=== PATIENT | female | born 1985 ===

== ENCOUNTER 2018-10-25 12:07 | Emergency (ER) | payer SELFPAY ==
--- NOTE | 2018-10-25 14:32 | ED PDOC ---
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 Patient denies fever or taking medications at home. PMD: in [place] Past Medical History Reviewed: Historical Data, Nursing Documentation, Vital Signs Vital Signs: Last Vital Signs Temp 97.6 F 10/25/18 12:13 Pulse 66 10/25/18 12:13 Resp 22 10/25/18 14:02 BP 101/63 10/25/18 12:13 Pulse Ox 99 10/25/18 14:02 - Medical History PMH: No Chronic Diseases Denies: Chronic Kidney Disease - Surgical History Surgical History: No Surg Hx - Family History Family History: States: Unknown Family Hx - Social History Current smoker - smoking cessation education provided: No Ex-Smoker (has not smoked in the last 12 months): No Alcohol: None Drugs: Denies - Home Medications Home Medications: Ambulatory Orders Medication Instructions Recorded RX: Albuterol HFA [Ventolin HFA 90 1 - 2 puff IH Q4H PRN #1 bottle 10/25/18 mcg/actuation (8 g)] - Allergies Allergies/Adverse Reactions: Allergies Allergy/AdvReac Type Severity Reaction Status Date / Time No Known Allergies Allergy Verified 10/25/18 12:18 Review of Systems ROS Statement: Except As Marked, All Systems Reviewed And Found Negative Constitutional: Negative for: Fever ENT: Positive for: Nose Congestion Respiratory: Positive for: Cough Physical Exam - Reviewed Nursing Documentation Reviewed: Yes Vital Signs Reviewed: Yes - Physical Exam Appears: Positive for: No Acute Distress Head Exam: Positive for: ATRAUMATIC, NORMOCEPHALIC Skin: Positive for: Normal Color, Warm, Dry Eye Exam: Positive for: EOMI, Normal appearance, PERRL ENT: Positive for: Normal ENT Inspection Neck: Positive for: Normal Cardiovascular/Chest: Positive for: Regular Rate, Rhythm Respiratory: Positive for: Normal Breath Sounds, Other (patient coughing throughout exam) Gastrointestinal/Abdominal: Positive for: Other (gravid uterus) Extremity: Positive for: Normal ROM (upper and lower) Neurologic/Psych: Positive for: Alert, Oriented (x3) - ECG O2 Sat by Pulse Oximetry: 99 (RA) Pulse Ox Interpretation: Normal Medical Decision Making Medical Decision Making: Time: 1434 Plan: sob, cough, --Albuterol 2.5 mg INH --Peak flow pre/post treatment pt with normal vitals, clear lungs and benign blood work. Time: 172 --Patient feels completely better, coughing resolved, states albuterol helped her alot, patient to be discharged home, instructed on outpt follow up with primary dr. Scribe Attestation: Documented by Laury Warner, acting as a scribe for Jan Sinclair MD. Provider Scribe Attestation: All medical record entries made by the Scribe were at my direction and person ally dictated by me. I have reviewed the chart and agree that the record accurately reflects my personal performance of the history, physical exam, medical decision making, and the department course for this patient. I have also personally directed, reviewed, and agree with the discharge instructions and disposition. Disposition - Clinical Impression Clinical Impression: Cough - Patient ED Disposition Is Patient to be Admitted: No Counseled Patient/Family Regarding: Studies Performed, Diagnosis, Need For Followup - Disposition Disposition: Routine/Home Disposition Time: 17:21 Condition: IMPROVED Additional Instructions: follow up with your primary doctor in 1-2 days return to the ED with any worsening or concerning symptoms Prescriptions: RX: Albuterol HFA [Ventolin HFA 90 mcg/actuation (8 g)] 1 - 2 puff IH Q4H PRN #1 bottle PRN Reason: Wheezing Instructions: Cough, Adult (DC) Forms: [employer] (Latvian), [employer] (Belizean) Print Language: KOREAN
[2018-10-25] MEDS ORDERED: Albuterol 0.083% Inhal Sol (2.5 mg/3 mL) UD INH ONE ×2 (14:45→15:34)
[2018-10-25] MEDS ORDERED: Albuterol 0.083% Inhal Sol (2.5 mg/3 mL) UD ONE ×2 (15:18→15:41)
[2018-10-25 18:12] VITALS: BP 101/73; PULSE 80; RESP 20; TEMP 97.8
[2018-10-26 15:56] VITALS: O2SAT 99
== END 2018-10-25 18:09 | disposition home or self-care (01) ==
LOC: H.ER 12:07
DX: R05 Cough (principal); O26.893 Other specified pregnancy related conditions, third trimester; Z3A.34 34 weeks gestation of pregnancy; Z87.891 Personal history of nicotine dependence

== ENCOUNTER 2018-11-17 21:47 | Emergency (ER) | payer SELFPAY ==
[2018-11-17 21:56] VITALS: O2SAT 100
[2018-11-17] MEDS ORDERED: Albuterol 0.083% Inhal Sol (2.5 mg/3 mL) UD INH STA (22:54)
--- NOTE | 2018-11-17 22:59 | ED PDOC ---
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 is 28 weeks and states for the past 3 weeks she's had chest tightne ss and wheezing with a cough productive of yellow sputum. States she was initially seen in this ED at the onset of symptoms and given an albuterol neb with good improvement of symptoms. Pt. states she was prescribed an albuterol inhaler but did not get prescription filled as it was too expensive. She followed up with her PMD 4 days ago and she was prescribed a Z-pack which has not provided any relief. Reports a hx of asthma as a child. Also states she's developed nasal congestion. Denies fever, chills, hemoptysis, hx of DVT or PE, leg pain, vaginal bleeding, abdominal pain, pelvic pain. Past Medical History Reviewed: Historical Data, Nursing Documentation, Vital Signs Vital Signs: Last Vital Signs Temp 98.1 F 11/17/18 21:56 Pulse 109 H 11/17/18 21:56 Resp 18 11/17/18 22:16 BP 99/74 L 11/17/18 21:56 Pulse Ox 100 11/17/18 21:56 - Medical History PMH: Denies: Chronic Kidney Disease - Surgical History Surgical History: No Surg Hx - Family History Family History: States: No Known Family Hx - Home Medications Home Medications: Ambulatory Orders Medication Instructions Recorded Albuterol HFA [Ventolin HFA 90 1 - 2 puff IH Q4H PRN #1 bottle 10/25/18 mcg/actuation (8 g)] Albuterol Sulfate [Proair Hfa] 2 puff IH Q4 PRN #1 inh 11/18/18 - Allergies Allergies/Adverse Reactions: Allergies Allergy/AdvReac Type Severity Reaction Status Date / Time No Known Allergies Allergy Verified 11/17/18 21:56 Wells Criteria for PE - Wells Criteria for Pulmonary Embolism Clinical Signs and Symptoms of DVT: No P.E is #1 Diagnosis, or Equally Likely: No Heart Rate >100: No Immobilization at least 3 days;Surgery previous 4 weeks: No Previous, objectively diagnosed PE or DVT: No Hemoptysis: No Malignancy w/treatment within 6 months, or palliative: No Total Score: 0 Review of Systems ROS Statement: Except As Marked, All Systems Reviewed And Found Negative ENT: Positive for: Nose Congestion Respiratory: Positive for: Cough, Wheezing Physical Exam - Physical Exam Appears: Positive for: Well, Non-toxic, No Acute Distress (speaking in full complete sentences) Skin: Positive for: Normal Color, Warm. Negative for: Rash Eye Exam: Positive for: Normal appearance ENT: Positive for: TM Is/Are (non-erythematous, non-bulging b/l), Nasal Congestion. Negative for: Pharyngeal Erythema, Tonsillar Exudate, Tonsillar Swelling Neck: Positive for: Normal, Painless ROM Cardiovascular/Chest: Positive for: Regular Rate, Rhythm. Negative for: Tachycardia Respiratory: Positive for: Wheezing (b/l expiratory wheezing). Negative for: Accessory Muscle Use, Crackles, Rales, Respiratory Distress Gastrointestinal/Abdominal: Positive for: Soft, Other (gravid). Negative for: Tenderness Back: Positive for: Normal Inspection. Negative for: L CVA Tenderness, R CVA Tenderness Neurological/Psych: Positive for: Awake, Alert, Oriented (x3) - ECG ECG: Positive for: Interpreted By Me ECG Rhythm: Positive for: Sinus Rhythm. Negative for: ST/T Changes Rate: 98 O2 Sat by Pulse Oximetry: 100 - Radiology X-Ray: Interpreted by Me (CXR) X-Ray Interpretation: No Acute Disease - Progress ED Course And Treament: Albuterol neb x 3, CXR ordered. Case d/w Dr. Clayton who agrees with plan and care. 0000 Slovenian [id number] On re-evaluation, pt. reports complete relief of dyspnea. Lungs clear b/l. Advised to continue Z-pack as prescribed and is to f/u with PMD for further evaluation but is to return to ED immediately if symptoms worsen. On cardiac nurse: SR at [address]-T wave changes. Disposition - Clinical Impression Clinical Impression: Bronchospasm, acute - Patient ED Disposition Is Patient to be Admitted: No - Disposition Referrals: [facility] [Outside] Disposition: Routine/Home Disposition Time: 00:00 Condition: IMPROVED Additional Instructions: NANCY MCMAHAN, thank you for letting us take care of you today. Your provider was Brigida Clayton MD and you were treated for 28WKS PREG;CHEST PAIN. The emergency medical care you received today was directed at your acute symptoms. If you were prescribed any medication, please fill it and take as directed. It may take several days for your symptoms to resolve. Return to the Emergency Department if your symptoms worsen, do not improve, or if you have any other problems. Please contact your doctor or call one of the physicians/clinics you have been referred to that are listed on the Patient Visit Information form that is included in your discharge packet. Bring any paperwork you were given at discharge with you along with any medications you are taking to your follow up visit. Our treatment cannot replace ongoing medical care by a primary care provider outside of the emergency department. Thank you for allowing the [facility] team to be part of your care today. If you had an X-Ray or CT scan: A Radiologist will review the ED reading if any change in treatment is needed we will contact you. If you had a blood, urine, or wound culture: It will take several days for the results, if any change in treatment is needed we will contact you. If you had an STI test: It will take 48 hours for the results. Please call after 1 week if you have not heard back. Prescriptions: Albuterol Sulfate [Proair Hfa] 2 puff IH Q4 PRN #1 inh PRN Reason: Wheezing Instructions: Asthma and Forms: [employer] (Hungarian)
[2018-11-17] MEDS ORDERED: Albuterol-Ipratrop 3 mg / 0.5 (3 ml) UD ONE (23:00)
[2018-11-17 23:04] VITALS: PULSE 98
[2018-11-18 01:38] VITALS: BP 113/63; RESP 16; TEMP 97.8
--- NOTE | 2018-11-18 07:58 | RAD ---
Date of service: 11/17/2018 HISTORY: cough COMPARISON: No prior. TECHNIQUE: Chest PA and lateral FINDINGS: LUNGS: No active pulmonary disease. PLEURA: No significant pleural effusion identified. No pneumothorax apparent. CARDIOVASCULAR: No aortic atherosclerotic calcification present. Normal cardiac size. No pulmonary vascular congestion. OSSEOUS STRUCTURES: No significant abnormalities. VISUALIZED UPPER ABDOMEN: Normal. OTHER FINDINGS: None. IMPRESSION: No active disease.
--- NOTE | 2018-11-18 21:09 | CARD ---
APPROVED REPORT Date of service: 11/17/2018 EKG Measurement Heart [id number] <Conclusion> Normal sinus rhythm Normal ECG
== END 2018-11-18 01:25 | disposition home or self-care (01) ==
LOC: H.ER 21:47
DX: J98.01 Acute bronchospasm (principal); J44.9 Chronic obstructive pulmonary disease, unspecified; O99.513 Diseases of the respiratory system complicating pregnancy, third trimester; Z3A.28 28 weeks gestation of pregnancy; Z79.899 Other long term (current) drug therapy

== ENCOUNTER 2019-02-05 08:52 | Emergency (ER) | payer SELFPAY ==
[2019-02-05 09:59] VITALS: BMI 26.6
[2019-02-05] MEDS ORDERED: Lactated Ringer's 1,000 ML IV SCH (10:00)
--- NOTE | 2019-02-05 11:40 | OBDCSUM ---
Datetime: 02/05/2019 11:27 Discharged to, Provider: Home Follow up at, Provider: Labor and delivery Disch Instr Activity: Normal activity Disch Instr Diet: Regular Discharge Time: 02/05/2019 11:27 Follow up in weeks, Provider: 02/07/19 Disch Referrals: None
--- NOTE | 2019-02-05 11:40 | OBHP ---
Datetime: 02/05/2019 09:41 IP Adm Impression: Term, intrauterine IP Admit Plan: Observation/Evaluation Admit Comment, IP Provider: 33 y/o female at 39.1 wk GA presents to SNOW w/ c/o painful cont ractions since 3 AM today. She denies VB, VFL and endorses movements. She is scheduled for a re peat on Tuesday02/07/19. OB: [facility]; Dr. Hui OBhx: 2016. 1 Miscarriage Pmhx: Childhood Asthma HomeRx: Albuterol sulfate 2.5mg/3ml Nebs Q4-6H PRN, Singulair 10mg PO QD, vitamins Allergies: NKDA SocialHx: denies toxic habits Famhx: denies SurgHx: 2016 ROS: All systems reviewed and negative except per HPI PhysicalExam: Gen: sitting up comfortably in bed, no acute distress Heart: S1/S2 present, RRR Lungs: normal breathing effort, clear to auscultation bilaterally Abd: Gravid, normal BS, soft, non-tender Extremities: No swelling/erythema/tenderness Psych: Good eye contact, cooperative w/ exam. Smiling. Assessment and Plan 33 y/o female at 39.1 wk IUP GBS neg, HBsAg neg, HIV and RPR neg 08/07/18 and 12/14/2018, O- AB antibody(s/p rhogram at 28 wks), GC/C neg, Rubella immune TOCO and NST monitoring NST is reactive w/ moderate variability [place] shows occasional contractions SVE (By Dr. Arora) FT/thick/high Will give 1L LR IV bolus Patient is not in active labor Patient stable for discharge to home w/ instructions to come back if has VB/VFL and severe abdomin al pain. Scheduled for repeat on 02/07/2019. All patient's questions and concerns addressed. Case discussed w/ attending, Dr. Arora Nurse Tonya Lloyd provided Hebrew interpretation nancy Thompson Addendum by DR. Arora: I have evaluated the patient independently and I agree with the above Pelvic Type - PN: Adequate Extremities - PN: Normal Abdomen - PN: Normal Back - PN: Not Done Breast - PN: Not Done Lungs - PN: Normal Heart - PN: Normal Thyroid - PN: Not Done Neurologic - PN: Not Done HEENT - PN: Not Done General - PN: Normal FHR - Baseline A Provider: 140 Contraction Comments Provider: Q6 mins Gestation - Est Wks by US: 39.1 IP Hx Assessment: The History has been Reviewed and is Current EGA AdmitDate IP: 39.1 Vital Signs Provider: Reviewed; Within Normal Limits IP Chief Complaint: Uterine contractions NICHD Variability Prov Fetus A: Moderate 6-25bpm NICHD Decel Fetus A IP Provider: None Dilatation, Provider: FT Effacement, Provider: thick Station, Provider: high Genitourinary Exam: Not Done DTRs - PN: Not Done
[2019-02-05 16:05] VITALS: BP 106/76; PULSE 67; TEMP 97.9; O2SAT 99
== END 2019-02-05 11:35 | disposition home or self-care (01) ==
LOC: H.EROB2 08:52 → H.EROB 09:14 → H.L&D 09:23 → H.EROB2 11:35
DX: O26.93 Pregnancy related conditions, unspecified, third trimester (principal); R10.2 Pelvic and perineal pain; Z3A.39 39 weeks gestation of pregnancy
CPT/HCPCS: 99283; J7120

== ENCOUNTER 2019-02-05 22:08 | Inpatient (IN) | payer MEDICAID, SELFPAY ==
[2019-02-05 23:42] VITALS: BMI 26.4
[2019-02-05] MEDS ORDERED: Lactated Ringer's 1,000 ML IV ONE (23:42)
[2019-02-05] MEDS: Lactated Ringer's 1,000 ML IV SCH (23:45)
[2019-02-05] MEDS ORDERED: Oxytocin 30 UNIT in NS 500 ml 30 UNITS/500 ML BAG IV ONE (23:46)
[2019-02-06 00:08] VITALS: TEMP 98.4; O2SAT 99
[2019-02-06 00:14] LABS: BASO % 0.2 % (0.0-2.0); EOS # 0.5 K/uL (0.0-0.7); EOS % 5.4 % (0.0-4.0); HEMOGLOBIN 13.2 g/dL (12.0-16.0); LYMPH # 1.8 K/uL (1.0-4.3); LYMPH % 17.9 % (20.0-40.0); MEAN CELL VOLUME 91.4 fl (81.0-99.0); MEAN CORPUSCULAR HEMOGLOBIN 30.9 pg (27.0-31.0); MEAN CORPUSCULAR HGB CONC 33.8 g/dL (33.0-37.0); MEAN PLATELET VOLUME 11.6 fl (7.2-11.7); MONO # 0.5 K/uL (0.0-0.8); MONO % 5.4 % (0.0-10.0); NEUT % 71.1 % (50.0-75.0); NRBC % 0.2 % (0.0-0.0); RBC 4.26 Mil/uL (3.80-5.20); RED CELL DISTRIBUTION WIDTH 13.5 % (11.5-14.5); WHITE BLOOD COUNT 9.9 K/uL (4.8-10.8)
--- NOTE | 2019-02-06 00:22 | OBADHP ---
Datetime: 02/05/2019 23:38 Admit Comment, IP Provider: 33 y/o female at 39.1 wk GA presents to SNOW w/ c/o painful cont ractions since 3 AM today. She denies VB, VFL and endorses movements. Patient was seen in SNOW earlier today and was discharged home. She is scheduled for a repeat on Tuesday02/07/19. Denies any other complains. OB: [facility]; Dr. Hui OBhx: 2016 in [place] at 40 weeks(Elective C section). 1 Miscarriage Pmhx: Childhood Asthma HomeRx: Albuterol sulfate 2.5mg/3ml Nebs Q4-6H PRN, Singulair 10mg PO QD, vitamins Allergies: NKDA SocialHx: denies toxic habits Famhx: denies SurgHx: 2015 ROS: All systems reviewed and negative except per HPI PhysicalExam: Gen: sitting up comfortably in bed, no acute distress Heart: S1/S2 present, RRR Lungs: normal breathing effort, clear to auscultation bilaterally Abd: Gravid, normal BS, soft, non-tender Extremities: No swelling/erythema/tenderness Psych: Good eye contact, cooperative w/ exam. Smiling. SVE: /-3 Assessment and Plan 33 y/o female at 39.1 wk IUP. Patient discussed about vs C scetion. Patient consented for . Patient verbalized understanding. GBS neg, HBsAg neg, HIV and RPR neg 08/07/18 and 12/14/2018, O- AB antibody(s/p rhogram at 28 wks), GC/C neg, Rubella immune - Admit to L_ D for - CBC, T _ S - LR - Anesthesia consult for Epidural - Monitor for cervical changes. Case discussed with Dr. Maite Azar, PGY1 Addendum by Dr. Arora: I have evaluated the patient independently and I agree with the above. The patient is a @ 39.1 wks, previous for failure to dilate. With further questioning, as per patient the patient never went into labor at all and when her due date presented, the doctors performed an elective . Patient today made cervical change and is in early labor. FHR has re mained reactive, Cat-1 tracing. Patient was extensively counseled by myself risks/benefits of attempt ing vs elective repeat vs failed . Patient verbalized understanding to l ess than 1% change of risk of rupture which can lead to maternal/ morbidity and mortality. COnse nt for and repeat were signed with the help of a certified immunology specialist. All questions w ere answered, FHR = 145 mod dominik, +accels, no decels. TOCO = gabriela q 4-6 mins. Continue to monit or Presentation-Admit: Vertex FHR - Baseline A Provider: 140 Membranes, Provider: Intact Contraction Comments Provider: Q5 mins Comments, ACOG Physical Exam: Gen: sitting up comfortably in bed, no acute distress Heart: S1/S2 present, RRR Lungs: normal breathing effort, clear to auscultation bilaterally Abd: Gravid, normal BS, soft, non-tender Extremities: No swelling/erythema/tenderness Psych: Good eye contact, cooperative w/ exam. Smiling. SVE: 50/-3 IP Hx Assessment: The History has been Reviewed and is Current Vital Signs Provider: Reviewed; Within Normal Limits IP Chief Complaint: Uterine contractions; Maternal discomfort NICHD Variability Prov Fetus A: Moderate 6-25bpm NICHD Accel Fetus A IP Provider: 15X15 FHR Category Provider Fetus A: Category I NICHD Decel Fetus A IP Provider: None Dilatation, Provider: 2 Effacement, Provider: 50 Station, Provider: -3 EGA AdmitDate IP: 39.1 IP Adm Impression: Term, intrauterine IP Admit Plan: Admit to unit Datetime: 02/05/2019 09:41 Pelvic Type - PN: Adequate Extremities - PN: Normal Abdomen - PN: Normal Back - PN: Not Done Breast - PN: Not Done Lungs - PN: Normal Heart - PN: Normal Thyroid - PN: Not Done Neurologic - PN: Not Done HEENT - PN: Not Done General - PN: Normal Gestation - Est Wks by US: 39.1 Genitourinary Exam: Not Done DTRs - PN: Not Done
[2019-02-06] MEDS: Lactated Ringer's 1,000 ML IV SCH ×4 (01:45→15:45)
[2019-02-06] MEDS ORDERED: Fentanyl/Bupivacaine HCl 250 ML EPI ONE (01:58)
[2019-02-06] MEDS ORDERED: Bupivacaine HCl 0.5% PF (30 ml) Inj ONE ×2 (02:02→10:07)
[2019-02-06] MEDS: OXYTOCIN/0.9 % NS 20 UNIT/1,000 ML BAG IV SCH ×3 (07:00→15:30)
--- NOTE | 2019-02-06 07:49 | OBPN ---
Datetime: 02/06/2019 07:40 IP Progress Impression: Normal progression of labor IP Informed Consent Obtain: Vaginal After IP Procedures: Sterile Vag Exam IP Progress Plan: Continue present management Membranes, Provider: Ruptured Amniotic Fluid Color, Provider: Clear Contraction Comments Provider: q 6 mins FHR - Baseline A Provider: 145 IP Progress Note Comment: Patient comfortable s/p epidural VE = 5/70/-1, AROM FHR = 145 mod dominik, +accels, no decels TOCO = ctxning q 6 mins A/P 1. Patient making slow cervical change, now 5 cm and AROM 2. CEFM and TOCO 3. Will be re-evaluated as needed, continue with at this time Vital Signs Provider: Reviewed; Within Normal Limits NICHD Accel Fetus A IP Provider: 15X15 NICHD Variability Prov Fetus A: Moderate 6-25bpm Dilatation, Provider: 5 Effacement, Provider: 70 Station, Provider: -1 NICHD Decel Fetus A IP Provider: None Datetime: 02/05/2019 23:38 Presentation-Admit: Vertex FHR Category Provider Fetus A: Category I Datetime: 02/05/2019 09:41 Gestation - Est Wks by US: 39.1
[2019-02-06] MEDS ORDERED: Oxytocin 30 UNIT in NS 500 ml 30 UNITS/500 ML BAG IV ONE ×3 (08:02→11:06)
--- NOTE | 2019-02-06 11:00 | OBPN ---
Datetime: 02/06/2019 10:50 IP Progress Impression: Normal progression of labor; Reassuring heart rate IP Progress Plan: Augmentation; Anticipate Vaginal Delivery Membranes, Provider: Ruptured Contraction Comments Provider: 2-3m FHR - Baseline A Provider: 140 Presentation-Admit: Vertex IP Progress Note Comment: OB Hospitalist on-call - sign out received. She was cheked around 8am 5cm AROM and Pitocin started for augmentation. She felt some CTX pain before even with epidural in place . Dr Das came and gave a bolus dose. She apears comfortable - speaks Portugese / understands [facility] / Nurse is Danisha Couch SVAvani 6-7cm - bloody mucous plug noted Active phase of labor/Previous C/S x 1 PLAN: continue pitocin augmentatoin - currently at 2miu/h; rouse in place; SCD in place Labor, pain managment, with its risks/complicatoins discussed. She has been well counselled b y previous OB provider ... consents are in the chart. her questions answered. NICHD Accel Fetus A IP Provider: 10X10 FHR Category Provider Fetus A: Category I NICHD Variability Prov Fetus A: Moderate 6-25bpm Dilatation, Provider: 6-7 Effacement, Provider: 90 Station, Provider: -1 NICHD Decel Fetus A IP Provider: None
[2019-02-06] MEDS ORDERED: Lidocaine 1% Inj (20ml) ONE (12:17)
--- NOTE | 2019-02-06 13:39 | OBPN ---
Datetime: 02/06/2019 13:00 IP Progress Impression: Reassuring heart rate IP Progress Plan: Continue present management; Anticipate Vaginal Delivery Membranes, Provider: Ruptured FHR - Baseline A Provider: 150 IP Progress Note Comment: Notified that she was fully dilated at 12:00pm. Pitocin was shut off She feels comfortable and has not started pushing SVE at 13:00 - 0 station FHR reactive CTX q2-3m (no Pitocin) A: Second stage of labor PLAN: start pushing NICHD Accel Fetus A IP Provider: 15X15 FHR Category Provider Fetus A: Category I NICHD Variability Prov Fetus A: Moderate 6-25bpm Dilatation, Provider: 10 Effacement, Provider: 100 Station, Provider: 0 NICHD Decel Fetus A IP Provider: Early
[2019-02-06] MEDS ORDERED: Benzocaine/Menthol SPRAY TOP PRN ×2 (15:08→19:21)
[2019-02-06] MEDS ORDERED: Oxycodone/Acetaminophen 5/325 mg Tab PO PRN ×4 (15:08→19:21)
--- NOTE | 2019-02-06 15:15 | OBDS ---
DELIVERY PERSONNEL Delivery Doctor: Janki Yanes DO Scrub Nurse: Christina Stanton OBT Operations General Agent: Danisha Couch RN MATERNAL INFORMATION Delivery Anesthesia: Epidural Medications in Delivery: pitocin Placenta Cultured: No Maternal Complications: None RN Comments: Atramaitc delivery of viable baby girl. Skin to tkin initiated APGARs 9/9. Patien t and tolerated delivery well. Please see additional notes of delivery Provider Comments: Over intact perineum, of live female from OP presentation. Infant wa s crying spontaneously and mother was assisted to place infant on her chest for [id number]. Placen ta was delivered intact spontaneously. She remained stable. Fluid after 100cc/after placenta 200cc -= total EBL 100cc LABOR SUMMARY EDC: 02/11/2019 00:00 No. Babies in Womb: 1 Attempted: Yes Labor Anesthesia: Epidural LABOR INFORMATION Reason for Induction: Not Applicable Onset of Labor: 02/06/2019 09:00 Complete Dilatation: 02/06/2019 12:00 Oxytocin: Augmentation Group B Beta Strep: Negative Antibiotics # of Doses: 0 Steroids Given: None Reason Steroids Not Administered: Not Applicable Other Reason Not Administered: Not required MEMBRANES Membranes Rupture Method: Artificial Rupture of Membranes: 02/06/2019 08:00 Length of Rupture (hrs): 6.42 Amniotic Fluid Color: Clear Amniotic Fluid Amount: Small Amniotic Fluid Odor: Normal STAGES OF LABOR Stage 1 hrs: 3 Stage 1 min: 0 Stage 2 hrs: 2 Stage 2 min: 25 Stage 3 hrs: 0 Stage 3 min: 27 Total Time in Labor hrs: 5 Total Time in Labor min: 52 VAGINAL DELIVERY Episiotomy: None Laceration Extension: Second Degree Laceration Type: Perineal Laceration Repair: Yes Laceration Repair Note: Second degree was repaired with 2.0 Vicryl Rapide suture. 1% Lidocaine was infiltrated (3-5cc). Sponge Count Correct: Yes Sharps Count Correct: Yes Count Comment: 1 syringe 3 suture BABY A INFORMATION Delivery Date/Time: 02/06/2019 14:25 Method of Delivery: Vaginal Born in Route : No : Successful Forceps: N/A Vacuum Extraction: N/A Shoulder Dystocia : No SHOULDER DYSTOCIA BABY A Infant Delivery Date/Time: 02/06/2019 14:25 PRESENTATION/POSITION BABY A Presentation: Cephalic Cephalic Presentation: Vertex Vertex Position: Left Occipital Posterior Breech Presentation: N/A PLACENTA INFORMATION BABY A Placenta Delivery Time : 02/06/2019 14:52 Placenta Method of Delivery: Spontaneous Placenta Status: Delivered SCORES BABY A Heart Rate 1 min: >100 bpm Resp Effort 1 min: Good Cry Reflex Irritability 1 min: Cough or Sneeze or Pulls Away Muscle Tone 1 min: Active Motion Color 1 min: Body Doctor Phillips, Extremities Blue Resuscitation Effort 1 min: N/A SCORE 1 MIN: 9 Heart Rate 5 min: >100 bpm Resp Effort 5 min: Good Cry Reflex Irritability 5 min: Cough or Sneeze or Pulls Away Muscle Tone 5 min: Active Motion Color 5 min: Body Doctor Phillips, Extremities Blue Resuscitation Effort 5 min: N/A SCORE 5 MIN: 9 INFANT INFORMATION BABY A Gestational Age at Delivery: 39.0 Gestational Status: Term Outcome : Liveborn Infant Condition : Stable Sex: Female IDENTIFICATION/MEDS BABY A ID Band Number: [id number] ID Band Location: Right Leg; Right Arm WEIGHT/LENGTH BABY A Birthweight (gms): 2990 Weight (lb): 6 Weight (oz): 9 CORD INFORMATION BABY A No. Cord Vessels: 3 Nuchal Cord : N/A Cord Blood Taken: N/A Infant Suction: Mouth; Nose ASSESSMENT BABY A Infant Complications: None Physical Findings at Delivery: Within Normal Limits Respirations: Appears Normal Head Worker/ALS Called : No Transferred To: Remains with Mother
[2019-02-07 06:34] LABS: BASO % 0.2 % (0.0-2.0); EOS # 0.3 K/uL (0.0-0.7); EOS % 2.4 % (0.0-4.0); LYMPH # 1.7 K/uL (1.0-4.3); LYMPH % 14.7 % (20.0-40.0); MEAN CELL VOLUME 91.5 fl (81.0-99.0); MEAN CORPUSCULAR HEMOGLOBIN 31.4 pg (27.0-31.0); MEAN CORPUSCULAR HGB CONC 34.3 g/dL (33.0-37.0); MEAN PLATELET VOLUME 11.3 fl (7.2-11.7); MONO # 0.7 K/uL (0.0-0.8); MONO % 6.3 % (0.0-10.0); NEUT # 8.7 K/uL (1.8-7.0); NEUT % 76.4 % (50.0-75.0); RBC 3.42 Mil/uL (3.80-5.20); RED CELL DISTRIBUTION WIDTH 13.7 % (11.5-14.5); WHITE BLOOD COUNT 11.4 K/uL (4.8-10.8)
[2019-02-07 06:41] LABS: HEMOGLOBIN 10.8 g/dL (12.0-16.0)
[2019-02-07] MEDS ORDERED: Pneumococcal 23-Valent Vaccine IM ONE (10:00)
--- NOTE | 2019-02-07 10:10 | OBPPN ---
Datetime: 02/07/2019 06:27 PP Pain Prov: Within normal limits PP Nausea Prov: Denies PP Flatus Prov: Yes PP BM Prov: No PP Breasts Prov: Not Done PP Heart Prov: Normal PP Lungs Prov: Normal PP Abdomen/Uterus Prov: Normal PP Lochia Prov: Normal PP Vulva/Perineum Prov: Normal PP CVA Tenderness Prov: Normal PP Extremities Prov: Normal PP C/S Incision Prov: Not Applicable PP Progress Prov: Normal PP Impression Prov: Normal progression PP Plan Prov: Continue present management PP Progress Note Prov: 33-year-old S/P on 02/06/19, on PPD 1. Patient seen and evaluated at bedside. No overnight events. Pain tolerated with Ibuprofen. Tolerat ing regular diet well w/o nausea or vomiting. Denies fever, chills, CP, SOB, headache, dizziness. Amb ulating to chair and back to bed. Breast feeding. Passing flatus, No BM yet. Denies any new complains . VS: stable GEN: NAD Cardio: S1S2, no murmurs Lungs: clear breath sounds b/l, no wheezing Abdomen: BS+, appropriate tenderness to palpation. Uterus is firm and at the level of the umbilicu s. Soft, ND. EXT: No edema, calves non-tender NEURO/PSYCH: AAOx3, no grossly focal deficits, preserved affect and mood. Assessment/Plan: 33-year-old S/P on 02/06/19, on PPD 1. Pt remains afebrile, tolerating pain with medication. - Motrin 600mg po q6 and Percocet 5/325mg q4 for pain as per pain scale -Senakot 17.2mg po QHS -Encourage -Encourage ambulation -CBC On admission 13.2/38.9, Pending PP CBC -Mother O Negative, Baby O positive, blood screen and Rhogam on 02/07/19. - Pneomovax 23 vaccine IM once at 10:00 am Case discussed with attending -Kristopher Azar PGY1 The patient was seen with the resident I agree with the note IP PP Procedures: Rhogam Vital Signs Provider PP: Reviewed; Within Normal Limits
--- NOTE | 2019-02-08 09:57 | OBPPN ---
Datetime: 02/08/2019 07:37 PP Pain Prov: Within normal limits PP Nausea Prov: Denies PP Flatus Prov: Yes PP BM Prov: No PP Breasts Prov: Not Done PP Heart Prov: Normal PP Lungs Prov: Normal PP Abdomen/Uterus Prov: Normal PP Lochia Prov: Normal PP Vulva/Perineum Prov: Normal PP CVA Tenderness Prov: Normal PP Extremities Prov: Normal PP C/S Incision Prov: Not Applicable PP Progress Prov: Normal PP Impression Prov: Normal progression PP Plan Prov: Continue present management PP Progress Note Prov: 33-year-old S/P on 02/06/19, on PPD 2. Patient seen and evaluated at bedside. No overnight events. Pain tolerated with Ibuprofen. Tolerat ing regular diet well w/o nausea or vomiting. Denies fever, chills, CP, SOB, headache, dizziness. Amb ulating to chair and back to bed. Breast feeding w/o difficulties. Passing flatus, No BM yet. Denies any new complains. VS: stable GEN: NAD Cardio: S1S2, no murmurs Lungs: clear breath sounds b/l, no wheezing Abdomen: BS+, appropriate tenderness to palpation. Uterus is firm and at the level of the umbilicu s. Soft, ND. EXT: No edema, calves non-tender NEURO/PSYCH: AAOx3, no grossly focal deficits, preserved affect and mood. Assessment/Plan: 33-year-old S/P on 02/06/19, on PPD 2. Pt remains afebrile, tolerating pain with medication. - Motrin 600mg po q6 and Percocet 5/325mg q4 for pain as per pain scale -Senakot 17.2mg po QHS -Encourage -Encourage ambulation -Mother O Negative, S/P Rhogam on 02/07/19. -S/P Pneomovax 23 vaccine - ANticipated DC today 02/08/19 Case discussed with attending -Kristopher Azar PGY1 Patient seen and examined by me this am. Agree with above resident note. Patient for discharge liv e today. --Dr. Crowley IP PP Procedures: Rhogam Vital Signs Provider PP: Reviewed; Within Normal Limits
--- NOTE | 2019-02-08 09:57 | OBDCSUM ---
Datetime: 02/08/2019 07:45 Discharged to, Provider: Home Follow up at, Provider: [facility], Dr. Hui Disch Instr Activity: Normal activity; May Shower Disch Instr Diet: Regular Discharge Instructions, Provider: Routine instructions given Discharge Diagnosis, Provider: Term Delivered Follow up in weeks, Provider: 4-6 weeks Disch Referrals: None Contraception discussed, Prov: Yes Disch Activity Restrictions: No sexual activity; Nothing in vagina - [place], tampons, douche Discharge Comment, Provider: Discharge Summary DOA: 02/05/2019 EGA: 39.2 wks Diagnosis: S/P on 02/06/19 Summary of : 33 y/o S/P on 02/06/19 L_D summary: Pt is s/p . Pain was well controlled with pain meds. No nausea. Tolerating regula r diet well. Passing flatus, voiding well w/o difficulties. Breast feeding without difficulty. Lochia is similar to menses volume. DOL: 02/06/19 @14:25 NB: Female : 05/21 Weight: 2990 gm Lochia= menses, mild pain, controlled with medications Blood type: O neg , S/P Rhogam on 02/07/19 Received Pneumococcal vaccine on 02/07/19 Discharge Date: 02/08/2019 Time 10:00 AM Discharge Instructions: -Encourage -Encourage ambulation -Ibuprofen for mild-moderate pain PRN -Continue vitamins at home - ED precautions: If excessive bleeding, pain that does not get relief, fever >100.4, palpitations , SOB, CP or other concerning symptom go to the ED. - PT was urged if feeling sad, mood swing, depression, neglect of baby, suicidal thoughts, homicid al thoughts go to ER or call 911 for help - Pt should go to her Primary care doctor if have difficulty with breast feeding - F/U at [facility] in 4-6 weeks for checkup. -- Kristopher Azar MD, PGY-1 Contraception after Delivery: IUD Datetime: 02/05/2019 11:27 Discharge Instructions, Provider: Routine instructions given Contraception discussed, Prov: Yes
[2019-02-08 22:38] VITALS: BP 141/73; PULSE 61; RESP 20
== END 2019-02-08 18:36 | disposition home or self-care (01) | DRG 560 ==
LOC: H.EROB2 22:08 → H.L&D 23:42 → H.OB/GYN 02-06 17:00
PROVIDERS: ADMIT Obstetrics & Gynecology; ATTEND Obstetrics & Gynecology
PROC: 4A1HXCZ Monitoring of Products of Conception, Cardiac Rate, External Approach (ICD-10-PCS; 2019-02-05)
PROC: 10E0XZZ Delivery of Products of Conception, External Approach (ICD-10-PCS; principal; 2019-02-06)
PROC: 0KQM0ZZ Repair Perineum Muscle, Open Approach (ICD-10-PCS; 2019-02-06)
PROC: 10907ZC Drainage of Amniotic Fluid, Therapeutic from Products of Conception, Via Natural or Artificial Opening (ICD-10-PCS; 2019-02-06)
PROC: 3E0234Z Introduction of Serum, Toxoid and Vaccine into Muscle, Percutaneous Approach (ICD-10-PCS; 2019-02-07)
PROC: 3E0334Z Introduction of Serum, Toxoid and Vaccine into Peripheral Vein, Percutaneous Approach (ICD-10-PCS; 2019-02-07)
DX: O34.219 Maternal care for unspecified type scar from previous cesarean delivery (principal); O36.0930 Maternal care for other rhesus isoimmunization, third trimester, not applicable or unspecified; O70.1 Second degree perineal laceration during delivery; Z37.0 Single live birth; Z3A.39 39 weeks gestation of pregnancy; Z23 Encounter for immunization